=== PATIENT | male | born 1945 | race Caucasian/White ===

== ENCOUNTER 2021-06-04 11:17 | Emergency (ER) | payer MEDICARE ==
[~2021-06-04] VITALS: Ht 177.8 cm; Wt 70.0 kg
[2021-06-04] MEDS ORDERED: IV NORMAL SALINE 1000ML BAG 1,000 ML IV ONE (12:15)
--- NOTE | 2021-06-04 12:25 | PHYS DOC ---
Past Medical History Past Medical History: Kidney Stone Past Surgical History: Hip Replacement, Other Additional Past Surgical Histo: Left hip, 2 Cervical Vertebrae Smoking Status: Never Smoker Alcohol Use: None Drug Use: None General Adult EDM: Chief Complaint: ABDOMINAL PAIN HPI: HPI: Patient is a 75 year old male who presents with RLQ abdominal pain which started today. This morning the patient started experiencing RLQ abdominal pain that progressively worsened and has not resolved. The pain is constant and radiates to the right flank. Pain is rated 9/10 in severity. Patient reports mild nausea but denies vomiting. His most recent meal was last night. His last bowel movement was yesterday which he reports as normal. Denies any urinary changes or issues. The patient has not taken and medications for his pain recently. The patient describes having a similar episode of severe RLQ pain one month ago but it resolved after 10 minutes. He did not seek medical attention at that time. Reports history of prior kidney stone. Denies trauma. Denies fever/chills. Denies rash. Review of Systems: Review of Systems: Constitutional: Denies fever or chills Eyes: Denies redness or eye pain HENT: Denies nasal congestion or sore throat Respiratory: Denies cough or shortness of breath Cardiovascular: Denies chest pain or palpitations GI: Reports RLQ abdominal pain, nausea, and flank pain; Denies vomiting : Denies dysuria or hematuria Musculoskeletal: Reports flank/back pain on right; denies joint pain Integument: Denies rash or skin lesions Neurologic: Denies headache, focal weakness or sensory changes Complete systems were reviewed and found to be within normal limits, except as documented in this note. Heart Score: C/O Chest Pain: N/A Current Medications: Current Medications Medications (Trade) Dose Ordered Sig/Laisha Start Time Stop Time Status Last Admin Dose Admin Sodium Chloride 1,000 ml @ 1,000 mls/hr 1X ONCE 06/04/21 12:15 06/04/21 13:14 UNV Physical Exam: PE: Constitutional: Well developed, well nourished, in mild acute distress, non- toxic appearance HENT: Normocephalic, atraumatic Eyes: Conjunctiva normal, no discharge Neck: Normal range of motion, supple Lungs & Thorax: No respiratory distress, equal chest rise and fall Abdomen: Soft, non-distended abdomen, no ecchymosis or erythema upon inspection, RLQ tenderness with palpation, bowel sounds present in all four quadrants, no psoas sign, McBurney's point nontender, no guarding/rebound tenderness/distention Skin: Warm, dry, no erythema, no rash Back: No tenderness, right CVA tenderness Extremities: No tenderness, ROM intact, no edema Neurologic: Alert and oriented X 3, normal motor function, normal sensory function, no focal deficits noted Psychologic: Affect normal, judgment normal Current Patient Data: Vital Signs: Vital Signs Date Time Temp Pulse Resp B/P (MAP) Pulse Ox O2 Delivery O2 Flow Rate FiO2 06/04/21 11:49 97.8 61 18 180/85 100 Room Air 97.8 EKG: EK06/04/21 @ 1151 sinus rhythm with a rate of 61 bmp, QRS 96 ms, QT/QTc 434/438 ms, no significant ST changes Radiology/Procedures: Radiology/Procedures: PROCEDURE: CT ABD PELV W/ IV CONTRST ONLY Exam: CT abdomen/pelvis with intravenous contrast Indication: Abdominal pain to right groin, evaluate for hernia Comparison: None Technique: Helical CT imaging performed of the abdomen and pelvis after the intravenous administration of 3 mL Omnipaque 300 contrast. Sagittal and coronal reformats were obtained. One or more of the following individualized dose reduction techniques were utilized for this examination: 1. Automated exposure control 2. Adjustment of the mA and/or kV according to patient size 3. Use of iterative reconstruction technique. Findings: Lower chest: The heart is normal in size. Mild scattered atelectasis in the lung bases. Liver: Normal. No focal lesion. Gallbladder/Biliary Tree: Normal. Pancreas: Normal. Spleen: The spleen is normal in size. There are calcified splenic granulomas. There is an 8mm hypodense lesion in the posterior aspect of the spleen, likely a cyst. Adrenal Glands: Normal. Kidneys/Ureters/Bladder: There is right mild hydronephrosis due to a 4 mm calculus in the mid right ureter. No nephrolithiasis. There is mild right perinephric and periureteral fat stranding/fluid. There is a 1 cm simple cyst in the left kidney. Left ureter and bladder are grossly normal. Evaluation is mildly limited by artifact from a left hip prosthesis. Reproductive Organs: Prostate gland is mildly enlarged. Stomach, small bowel, and colon: Small hiatal hernia. Stomach is otherwise unremarkable. No small bowel obstruction. The colon is normal. Vasculature: Abdominal aorta is normal caliber with mild calcified atheroscler osis. Lymph Nodes: No lymphadenopathy. Peritoneum and retroperitoneum: No free fluid or free air. 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 There is a left total hip prosthesis, incompletely visualized. 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 Miscellaneous: No abdominal wall or inguinal hernia. Impression: 1. Mild right hydronephrosis due to a 4 mm calculus in the mid right ureter. 2. Small hiatal hernia. 3. Bilateral L5 spondylolysis with grade 2 spondylolisthesis, severe degenerative disc disease, and foraminal narrowing at L5-S1. Electronically signed by: Nanette Odonnell MD (06/04/2021 2:16 PM) [id number] Course & Med Decision Making: Course & Med Decision Making Pertinent Labs and Imaging studies reviewed. (See chart for details) Patient is a 75 year old male who presented complaining of RLQ pain that radiates to the right flank. CT abd/pelvis w IV contrast was obtained and showed mild right hydronephrosis due to a 4 mm calculus in the mid right ureter, small hiatal hernia, bilateral L5 spondylolysis with grade 2 spondylolisthesis, severe degenerative disc disease, and foraminal narrowing at L5-S1. UA was obtained and showed signs of UTI with microscopic hematuria. Rocephin was provided. Pain addressed. IV fluid hydration given. Patient reports interval improvement of symptoms. Patient stable for discharge with outpatient follow-up with PCP. Patient was also prescribed Flomax and Tramadol. Patient was instructed to return to the ER if symptoms worsen or if the patient develops a fever. Discussed findings and plan with patient and spouse, who acknowledge understanding and agreement. Azam Disclaimer: Azam Disclaimer: This electronic medical record was generated, in whole or in part, using a voice recognition dictation system. Departure Departure Impression: Primary Impression: Calculus of right kidney Additional Impression: Urinary tract infection Qualified Codes: N30.00 - Acute cystitis without hematuria Disposition: HOME / SELF CARE / HOMELESS Condition: STABLE Referrals: NO PCP (PCP) Patient Instructions: Diet for Kidney Stones, Kidney Stones, [id number], Urinary Tract Infection, [id number] Additional Instructions: Increase fluid hydration. Take over the counter Tylenol and/or Ibuprofen for pain. May take prescribed pain medication with Tylenol dose. Scripts Tramadol Hcl (TRAMADOL HCL) 50 Mg Tablet 50 MG PO Q6HRS PRN for PAIN, #14 TAB Prov: CHI SANTOS DO 06/04/21 Cephalexin (CEPHALEXIN) 500 Mg Capsule 1 CAP PO TID for 7 Days, #21 CAP Prov: CHI SANTOS DO 06/04/21 Tamsulosin Hcl (FLOMAX) 0.4 Mg Cap.er.24h 1 CAP PO DAILY, #10 TAB Prov: CHI SANTOS DO 06/04/21 CHI SANTOS DO Jun 04, 2021 12:25
[2021-06-04] MEDS ORDERED: CONTRAST GIVEN. MC PRN (12:30)
[2021-06-04] MEDS ORDERED: IOHEXOL 300 MG/ML 100ML VIAL. IV ONE (12:30)
[2021-06-04 13:14] LABS: BASO # 0.1 x10^3/uL (0.0-0.2); BASO % 0 % (0-3); EOS # 0.1 x10^3/uL (0.0-0.7); EOS % 0 % (0-3); HEMATOCRIT 44.4 % (39.0-53.0); HEMOGLOBIN 15.4 g/dL (13.0-17.5); LYMPH # 1.1 x10^3/uL (1.0-4.8); LYMPH % 9 % (24-48); MEAN CORPUSCULAR HEMOGLOBIN 32 pg (25-35); MEAN CORPUSCULAR HGB CONC 35 g/dL (31-37); MEAN CORPUSCULAR VOLUME 91 fL (79-100); MONO # 0.5 x10^3/uL (0.0-1.1); MONO % 4 % (0-9); NEUT # 10.1 x10^3/uL (1.8-7.7); NEUT % 86 % (31-73); PLATELET COUNT 231 x10^3/uL (140-400); RED BLOOD COUNT 4.87 x10^6/uL (4.30-5.70); RED CELL DISTRIBUTION WIDTH 13.5 % (11.5-14.5); WHITE BLOOD COUNT 11.8 x10^3/uL (4.0-11.0)
[2021-06-04] MEDS ORDERED: FAMOTIDINE 20 MG/2 ML VIAL IVP ONE (13:15)
[2021-06-04] MEDS ORDERED: ONDANSETRON PF 4 MG/2 ML VIAL. IVP ONE (13:15)
[2021-06-04] MEDS ORDERED: KETOROLAC 15 MG/ML VIAL. IVP ONE (13:15)
[2021-06-04 13:24] LABS: CREATININE 1.2 mg/dL (0.7-1.3)
[2021-06-04 13:30] LABS: ALBUMIN 3.7 g/dL (3.4-5.0); ALBUMIN/GLOBULIN RATIO 1.1 (1.0-1.7); TOTAL BILIRUBIN 0.7 mg/dL (0.2-1.0)
--- NOTE | 2021-06-04 14:18 | RAD ---
Exam: CT abdomen/pelvis with intravenous contrast Indication: Abdominal pain to right groin, evaluate for hernia Comparison: None Technique: Helical CT imaging performed of the abdomen and pelvis after the intravenous administratio n of 3 mL Omnipaque 300 contrast. Sagittal and coronal reformats were obtained. One or more of the following individualized dose reduction techniques were utilized for this examinat ion: 1. Automated exposure control 2. Adjustment of the mA and/or kV according to patient size 3. Use of iterative reconstruction technique. Findings: Lower chest: The heart is normal in size. Mild scattered atelectasis in the lung bases. Liver: Normal. No focal lesion. Gallbladder/Biliary Tree: Normal. Pancreas: Normal. Spleen: The spleen is normal in size. There are calcified splenic granulomas. There is an 8mm hypoden se lesion in the posterior aspect of the spleen, likely a cyst. Adrenal Glands: Normal. Kidneys/Ureters/Bladder: There is right mild hydronephrosis due to a 4 mm calculus in the mid right u reter. No nephrolithiasis. There is mild right perinephric and periureteral fat stranding/fluid. Ther e is a 1 cm simple cyst in the left kidney. Left ureter and bladder are grossly normal. Evaluation is mildly limited by artifact from a left hip prosthesis. Reproductive Organs: Prostate gland is mildly enlarged. Stomach, small bowel, and colon: Small hiatal hernia. Stomach is otherwise unremarkable. No small bow el obstruction. The colon is normal. Vasculature: Abdominal aorta is normal caliber with mild calcified atherosclerosis. Lymph Nodes: No lymphadenopathy. Peritoneum and retroperitoneum: No free fluid or free air. Bones: There is is chronic bilateral L5 spondylolysis with grade 2 spondylolisthesis, severe disc spa ce narrowing, and foraminal narrowing at L5-S1. There is a left total hip prosthesis, incompletely vi sualized. 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 Miscellaneous: No abdominal wall or inguinal hernia. Impression: 1. Mild right hydronephrosis due to a 4 mm calculus in the mid right ureter. 2. Small hiatal hernia. 3. Bilateral L5 spondylolysis with grade 2 spondylolisthesis, severe degenerative disc disease, and foraminal narrowing at L5-S1. Electronically signed by: Nanette Odonnell MD (06/04/2021 2:16 PM) [id number]
[2021-06-04 14:22] LABS: BILIRUBIN,URINE NEGATIVE (NEG); CLARITY,URINE CLOUDY; COLOR,URINE YELLOW; NITRITE,URINE POSITIVE (NEG); PH,URINE 6.5 (<5.0-8.0); PROTEIN,URINE 30 mg/dL (NEG-TRACE); UROBILINOGEN,URINE 0.2 mg/dL (0.2 mg/dL)
[2021-06-04 14:26] LABS: % BANDS 9 % (0-9); % EOS 1 % (0-5); % LYMPHS 8 % (24-48); % MONOS 3 % (0-10); % SEGS 79 % (35-66)
[2021-06-04 14:28] LABS: PLT ESTIMATE ADEQUATE (ADEQUATE)
[2021-06-04 14:33] LABS: AMORPHOUS SEDIMENT,UR PRESENT /HPF; BACTERIA,URINE MODERATE /HPF (0-FEW); RBC,URINE >40 /HPF (0-2); WBC,URINE TNTC /HPF (0-4)
[2021-06-04] MEDS ORDERED: TAMSULOSIN 0.4 MG CAP.ER.24H. PO ONE (15:15)
[2021-06-04] MEDS ORDERED: cefTRIAXone IV Push 1 GM VIAL. IVP ONE (15:15)
[2021-06-04] MEDS ORDERED: TRAM50TA PO (15:42)
[2021-06-04] MEDS ORDERED: CEPH500C PO (15:42)
[2021-06-04] MEDS ORDERED: TAMS0.4C97 PO (15:42)
[2021-06-04] MEDS ORDERED: IOHEXOL 300 MG/ML 100ML VIAL. ONE (16:43)
[2021-06-04 17:04] VITALS: BP 140/80
--- NOTE | 2021-06-05 01:02 | EKG ---
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
--- NOTE | 2021-06-29 08:54 | EKG ---
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
== END 2021-06-04 17:17 | disposition home or self-care (01) ==
LOC: ER 11:17
DX: N30.00 Acute cystitis without hematuria (principal); N13.2 Hydronephrosis with renal and ureteral calculous obstruction; Z87.442 Personal history of urinary calculi
CPT/HCPCS: 36415; 74177; 80053; 81001; 83690; 85007; 85025; 87077; 87086; 93005; 96361; 96374; 96375; 99285; J0696; J1885; J2405; J3490; J7030; Q9967

== ENCOUNTER 2021-07-06 11:27 | Emergency (ER) | payer MEDICARE ==
[~2021-07-06] VITALS: Ht 175.3 cm; Wt 72.0 kg
[~2021-07-06 11:27] MED LIST: CEPH500C PO; TAMS0.4C97 PO; TRAM50TA PO
[2021-07-06] MEDS ORDERED: IV NORMAL SALINE 1000ML BAG 1,000 ML IV ONE (13:45)
[2021-07-06 13:53] LABS: BASO % 0 % (0-3); EOS % 0 % (0-3); HEMATOCRIT 42.7 % (39.0-53.0); HEMOGLOBIN 14.8 g/dL (13.0-17.5); LYMPH # 1.2 x10^3/uL (1.0-4.8); LYMPH % 13 % (24-48); MEAN CORPUSCULAR HEMOGLOBIN 32 pg (25-35); MEAN CORPUSCULAR HGB CONC 35 g/dL (31-37); MEAN CORPUSCULAR VOLUME 92 fL (79-100); MONO # 0.7 x10^3/uL (0.0-1.1); MONO % 8 % (0-9); NEUT # 7.9 x10^3/uL (1.8-7.7); NEUT % 80 % (31-73); PLATELET COUNT 192 x10^3/uL (140-400); RED BLOOD COUNT 4.67 x10^6/uL (4.30-5.70); RED CELL DISTRIBUTION WIDTH 13.2 % (11.5-14.5); WHITE BLOOD COUNT 9.9 x10^3/uL (4.0-11.0)
[2021-07-06 13:54] LABS: BILIRUBIN,URINE NEGATIVE (NEG); CLARITY,URINE CLEAR; COLOR,URINE YELLOW; NITRITE,URINE NEGATIVE (NEG); PH,URINE 6.5 (<5.0-8.0); PROTEIN,URINE NEGATIVE (NEG-TRACE); UROBILINOGEN,URINE 0.2 mg/dL (0.2 mg/dL)
[2021-07-06 14:09] LABS: BACTERIA,URINE FEW /HPF (0-FEW); WBC,URINE >40 /HPF (0-4)
[2021-07-06 14:13] LABS: CALCIUM 9.1 mg/dL (8.5-10.1); CREATININE 1.1 mg/dL (0.7-1.3); GFR 65.3; POTASSIUM 4.2 mmol/L (3.5-5.1)
[2021-07-06 14:18] LABS: ALBUMIN 3.4 g/dL (3.4-5.0); ALBUMIN/GLOBULIN RATIO 0.9 (1.0-1.7)
--- NOTE | 2021-07-06 14:18 | RAD ---
CT ABDOMEN+PELVIS WO History: Right pelvic pain, fever recent kidneys. Comparison: 06/04/2021. Technique: Noncontrast CT of the abdomen and pelvis. Findings: There is mild right hydronephrosis with right perinephric fat stranding. Proximal right hydroureter. There is a 5 x 7 mm distal right ureteral stone which has progressed distally since 06/04/2021 compari son. No left hydronephrosis or hydroureter. The visualized bladder is unremarkable, however somewhat obscu red by streak artifact from left total hip arthroplasty. Right lower lobe and middle lobe basilar atelectasis/scarring. No significant airspace consolidation. Heavy coronary artery calcification. No pleural or pericardial effusion. The liver, gallbladder, pancreas, and adrenal glands are unremarkable. Punctate calcifications in the spleen consistent with old granulomatous disease. The stomach is decompressed. Small sliding hiatal hernia. No small bowel or colonic abnormality. No abdominal pelvic adenopathy. Soft tissues are unrem arkable. Left total hip arthroplasty without evidence for complication. Mild degenerative changes of the right hip. Grade 2 anterolisthesis of L5 on S1 and complete L5-S1 disc space loss in the setting of bilateral pars interarticularis defects causing a lateral neural foraminal stenosis. Impression: 1. Progression of right ureteral stone to the distal ureter with mild right hydronephrosis. ------ Exposure: One or more of the following individualized dose reduction techniques were utilized for thi s examination: 1. Automated exposure control 2. Adjustment of the mA and/or kV according to patient size 3. Use of iterative reconstruction technique. Electronically signed by: Gadiel Wen MD (07/06/2021 2:15 PM) [id number]
[2021-07-06] MEDS ORDERED: cefTRIAXone IV Push 1 GM VIAL. IVP ONE (15:00)
[2021-07-06 16:33] VITALS: BP 135/67
[2021-07-06] MEDS ORDERED: CEPH500T PO (18:09)
[2021-07-06] MEDS ORDERED: TAMS0.4C97 PO (18:09)
--- NOTE | 2021-07-06 18:10 | PHYS DOC ---
Past Medical History Past Medical History: Kidney Stone Past Surgical History: Hip Replacement, Other Additional Past Surgical Histo: Left hip, 2 Cervical Vertebrae Smoking Status: Never Smoker Alcohol Use: None Drug Use: None General Adult EDM: Chief Complaint: MULTIPLE COMPLAINTS HPI: HPI: Patient is a 75 year old male presents to the emergency department with chief complaint of ongoing kidney stone pain. Patient states that he sees a Dr. Smart at [facility], states his office called him and told him to come straight to [facility] for his kidney stone problems. Patient states he is here to be admitted to see our urologist for his doctor's orders. Patient reports being seen here on 2020 and diagnosed with a 4 mm stone in his right ureter, was sent home on oral antibiotics, Flomax, and tramadol for pain. Patient denies any current pain. Patient states he feels like his urinary tract infection is ongoing related to burning with urination. Patient denies abdominal pain, nausea, vomiting, or diarrhea. Patient denies chest p ains, chest congestion or nasal congestion, patient denies fever or chills. Patient denies any other physical complaints or physical concerns. Review of Systems: Review of Systems: 14 body systems of review of systems have been reviewed. See HPI for pertinent positives and negative responses, otherwise all other systems are negative, nonpertinent or noncontributory. Constitutional: Negative except as outlined in HPI above. Skin: Negative except as outlined in HPI above. Eyes: Negative except as outlined in HPI above. HENT: Negative except as outlined in HPI above. Respiratory: Negative except as outlined in HPI above. Cardiovascular: Negative except as outlined in HPI above. GI: Negative except as outlined in HPI above. : Negative except as outlined in HPI above. Musculoskeletal: Negative except as outlined in HPI above. Integument: Negative except as outlined in HPI above. Neurologic: Negative except as outlined in HPI above. Endocrine: Negative except as outlined in HPI above. Lymphatic: Negative except as outlined in HPI above. Psychiatric: Negative except as outlined in HPI above. Heart Score: C/O Chest Pain: No Risk Factors: Risk Factors: DM, Current or recent (<one month) smoker, HTN, HLP, family history of CAD, obesity. Risk Scores: Score 0 - 3: 2.5% MACE over next 6 weeks - Discharge Home Score 4 - 6: 20.3% MACE over next 6 weeks - Admit for Clinical Observation Score 7 - 10: 72.7% MACE over next 6 weeks - Early Invasive Strategies Current Medications: Current Medications Medications (Trade) Dose Ordered Sig/Laisha Start Time Stop Time Status Last Admin Dose Admin Ceftriaxone Sodium (Rocephin) 1 gm 1X ONCE 07/06/21 15:00 07/06/21 15:01 DC 07/06/21 15:00 1 GM Sodium Chloride 1,000 ml @ 1,000 mls/hr 1X ONCE 07/06/21 13:45 07/06/21 14:44 DC 07/06/21 13:20 1,000 MLS/HR Allergies: Allergies: Allergies Coded Allergies Type Severity Reaction Last Updated Verified No Known Drug Allergies 06/04/21 No Physical Exam: PE: Constitutional: Well developed, well nourished, no acute distress, non-toxic appearance. 75-year-old male in no apparent distress. HENT: Normocephalic, atraumatic. Eyes: Conjunctiva normal, no discharge. Neck: Normal range of motion. Cardiovascular: Distal cap refill less than 2 seconds, no cyanosis appreciated. Lungs & Thorax: Patient is in no respiratory distress, no adventitious lung sounds appreciated. Abdomen: Bowel sounds normal, soft, no masses, no pulsatile masses. No bruising or skin discoloration of the abdomen. No tenderness to abdomen with palpation. No skin discoloration of the abdomen appreciated. Skin: Warm, dry, no erythema, no rash. Back: No tenderness, no CVA tenderness. Extremities: No tenderness, no cyanosis, no clubbing, ROM intact, no edema. Neurologic: Alert and oriented X 3, normal motor function, normal sensory function, no focal deficits noted. Psychologic: Affect normal, judgement normal, mood normal. Current Patient Data: Labs: Laboratory Tests Test 07/06/21 12:37 07/06/21 13:28 Urine Collection Type Unknown Urine Color Yellow Urine Clarity Clear Urine pH 6.5 (<5.0-8.0) Urine Specific [place] 1.015 (1.000-1.030) Urine Protein Negative mg/dL (NEG-TRACE) Urine Glucose (UA) Negative mg/dL (NEG) Urine Ketones (Stick) Trace mg/dL (NEG) Urine Blood Moderate (NEG) Urine Nitrite Negative (NEG) Urine Bilirubin Negative (NEG) Urine Urobilinogen Dipstick 0.2 mg/dL (0.2 mg/dL) Urine Leukocyte Esterase Large (NEG) Urine RBC 1-2 /HPF (0-2) Urine WBC >40 /HPF (0-4) Urine Bacteria Few /HPF (0-FEW) White Blood Count 9.9 x10^3/uL (4.0-11.0) Red Blood Count 4.67 x10^6/uL (4.30-5.70) Hemoglobin 14.8 g/dL (13.0-17.5) Hematocrit 42.7 % (39.0-53.0) Mean Corpuscular Volume 92 fL (79-100) Mean Corpuscular Hemoglobin 32 pg (25-35) Mean Corpuscular Hemoglobin Concent 35 g/dL (31-37) Red Cell Distribution Width 13.2 % (11.5-14.5) Platelet Count 192 x10^3/uL (140-400) Neutrophils (%) (Auto) 80 % (31-73) H Lymphocytes (%) (Auto) 13 % (24-48) L Monocytes (%) (Auto) 8 % (0-9) Eosinophils (%) (Auto) 0 % (0-3) Basophils (%) (Auto) 0 % (0-3) Neutrophils # (Auto) 7.9 x10^3/uL (1.8-7.7) H Lymphocytes # (Auto) 1.2 x10^3/uL (1.0-4.8) Monocytes # (Auto) 0.7 x10^3/uL (0.0-1.1) Eosinophils # (Auto) 0.0 x10^3/uL (0.0-0.7) Basophils # (Auto) 0.0 x10^3/uL (0.0-0.2) Sodium Level 138 mmol/L (136-145) Potassium Level 4.2 mmol/L (3.5-5.1) Chloride Level 102 mmol/L (98-107) Carbon Dioxide Level 26 mmol/L (21-32) Anion Gap 10 (6-14) Blood Urea Nitrogen 17 mg/dL (8-26) Creatinine 1.1 mg/dL (0.7-1.3) Estimated GFR (Cockcroft-Gault) 65.3 BUN/Creatinine Ratio 15 (6-20) Glucose Level 116 mg/dL (70-99) H Calcium Level 9.1 mg/dL (8.5-10.1) Total Bilirubin 1.0 mg/dL (0.2-1.0) Aspartate Amino Transferase (AST) 23 U/L (15-37) Alanine Aminotransferase (ALT) 24 U/L (16-63) Alkaline Phosphatase 82 U/L (46-116) Total Protein 7.0 g/dL (6.4-8.2) Albumin 3.4 g/dL (3.4-5.0) Albumin/Globulin Ratio 0.9 (1.0-1.7) L Laboratory Tests 07/06/21 13:28 Laboratory Tests 07/06/21 13:28 Vital Signs: Vital Signs Date Time Temp Pulse Resp B/P (MAP) Pulse Ox O2 Delivery O2 Flow Rate FiO2 07/06/21 16:33 91 135/67 (89) 96 Room Air 07/06/21 13:13 97.0 16 97.0 EKG: EKG: [] Radiology/Procedures: Radiology/Procedures: PATIENT: ROSMERY BAHACCOUNT: [id number] : 1945 LOCATION: ER AGE: 75 SEX: M EXAM STATUS: REG ER ORD. PHYSICIAN: PETER PERRY APRN REASON: stone study, RT PELVIC PAIN, FEVER, HX RECENT KIDNEY STONE PROCEDURE: CT ABDOMEN PELVIS WO CONTRAST CT ABDOMEN+PELVIS WO History: Right pelvic pain, fever recent kidneys. Comparison: 06/04/2021. Technique: Noncontrast CT of the abdomen and pelvis. Findings: There is mild right hydronephrosis with right perinephric fat stranding. Proximal right hydroureter. There is a 5 x 7 mm distal right ureteral stone which has progressed distally since 06/04/2021 comparison. No left hydronephrosis or hydroureter. The visualized bladder is unremarkable, however somewhat obscured by streak artifact from left total hip arthroplasty. Right lower lobe and middle lobe basilar atelectasis/scarring. No significant airspace consolidation. Heavy coronary artery calcification. No pleural or pericardial effusion. The liver, gallbladder, pancreas, and adrenal glands are unremarkable. Punctate calcifications in the spleen consistent with old granulomatous disease. The stomach is decompressed. Small sliding hiatal hernia. No small bowel or colonic abnormality. No abdominal pelvic adenopathy. Soft tissues are unremarkable. Left total hip arthroplasty without evidence for complication. Mild degenerative changes of the right hip. Grade 2 anterolisthesis of L5 on S1 and complete L5-S1 disc space loss in the setting of bilateral pars interarticularis defects causing a lateral neural foraminal stenosis. Impression: 1. Progression of right ureteral stone to the distal ureter with mild right hydronephrosis. ------ Exposure: One or more of the following individualized dose reduction techniques were utilized for this examination: 1. Automated exposure control 2. Adjustment of the mA and/or kV according to patient size 3. Use of iterative reconstruction technique. Electronically signed by: Gadiel Wen MD (07/06/2021 2:15 PM) [id number] Course & Med Decision Making: Course & Med Decision Making Pertinent Labs and Imaging studies reviewed. (See chart for details) 75-year-old male, vital signs reviewed, presents emergency department complaining of ongoing kidney stone problems. Patient's physical examination unremarkable, however after an extensive chart review, will order kidney stone work-up. The patient's urine is infected, will give [address] of abdomen pelvis concerning for increasing stone size, has not passed continues to be in right ureter. Discussed with patient need for admission to hospital related to obstructive kidney stone with infectious process. Patient is amenable to this plan. Called and discussed patient case with transfer line who has reviewed patient transferred reporting they only have ICU beds available. Called and discussed patient case with [facility] transfer line who has refused patients reporting they have no beds in their hospital. Called and discussed patient case with [facility] housetrailer servicer who states there are no beds available at that hospital and they are unable to accept patient transfer. Called and discussed patient case with [facility] housetrailer servicer who states there are no beds available at [facility] and they are unable to accept patient in transfer. Called and discussed patient case with housetrailer servicer at [facility] in [facility] who states they are full and unable to accept patient admits at this time. Called and discussed patient case with [facility] transfer line in [facility] who states they are unable to accept any transfers at this time. Called and discussed patient case with [facility] transfer line who states they are no longer accepting transfers from any outside facility. Called transfer center to speak with urology for possible outpatient treatment, transfer center states they are not allowed to speak with urology specialty but will page to see if urology specialty will call me back at [facility] to discuss patient case. Discussed patient case and ED work-up with inpatient management physician Dr. Corbin who has accepted patient in admission pending patient follow-up with urology specialty. Discussed with patient recommendation for admission at this facility, Dr. Packer arrived in room for patient examination and admission, patient has refused admission, patient states he does not know why admission is recommended at this facility when there is no urology specialty. Patient states he is leaving this facility and going home. The patient and I had an extensive discussion regarding the risks of leaving AMA including but not limited to , permanent disability, and worsening condition. Also had an extensive discussion with the patient regarding the benefits of excepting admission and transfer which include promotion of health and wellness, and ongoing treatment of disease processes. The patient acknowledged the risks and benefits and agreed to take full responsibility of leaving AGAINST MEDICAL ADVICE. The patient was alert and oriented x4 and had full medical decision-making capability when they signed the AMA forms. Azam Disclaimer: Azam Disclaimer: This electronic medical record was generated, in whole or in part, using a voice recognition dictation system. Departure Departure Impression: Primary Impression: Left against medical advice Additional Impressions: Kidney stone on right side Urinary tract infection Qualified Codes: N39.0 - Urinary tract infection, site not specified; R31.9 - Hematuria, unspecified Disposition: 07 LEFT AGAINST MEDICAL ADVICE Condition: STABLE Referrals: UMAIR MALAVE (PCP) Patient Instructions: Acute Kidney Injury Additional Instructions: You were seen today in the emergency department for ongoing kidney stone problems. It was recommended to you that you be transferred admitted to a facility that has urology specialty. Unfortunately after an extensive search in the [facility] area there are no beds available that have a urology specialist to care for you. I had recommended you be admitted to this facility until a urology specialist would become available. You have elected to leave this facility AGAINST MEDICAL ADVICE. Please return to the nearest emergency department for worsening symptoms or other concerns. I am prescribing you antibiotic medication to the pharmacy you requested. Patient does not wish to proceed with medical care recommended by Peter Perry, ADRYAN, NPC. Patient given information related to possible complications, up to and including , which could occur as a result of leaving the hospital at this time. Patient verbalizes understanding of risks involved due to leaving against medical advice. Patient has signed AMA form. Scripts Tamsulosin Hcl (FLOMAX) 0.4 Mg Cap.er.24h 1 CAP PO DAILY for kidney stone, #10 CAP 0 Refills Prov: PETER PERRY APRN 07/06/21 Cephalexin (CEPHALEXIN) 500 Mg Tablet 1 TAB PO TID for uti, #30 TAB 0 Refills Prov: PETER PERRY APRN 07/06/21 PETER PERRY APRN Jul 06, 2021 18:10
== END 2021-07-06 18:05 | disposition left against medical advice (07) ==
LOC: ER 11:27
DX: N13.2 Hydronephrosis with renal and ureteral calculous obstruction (principal); N39.0 Urinary tract infection, site not specified; R31.9 Hematuria, unspecified
CPT/HCPCS: 36415; 74176; 80053; 81001; 85025; 87086; 96361; 96374; 99285; J0696; J7030